=== PATIENT | female | born 1990 | race Caucasian/White ===

== ENCOUNTER 2017-05-12 15:35 | Emergency (ER) | payer MEDICAID ==
[~2017-05-12] VITALS: Ht 160 cm; Wt 50.7 kg
[2017-05-12 16:29] LABS: BLOOD UREA NITROGEN 9 mg/dL (7-18)
[2017-05-12 16:37] LABS: PATH.CAST-FLAG NOT PRESENT; SPERM-FLAG NOT PRESENT; SRC-FLAG NOT PRESENT; XTAL-FLAG NOT PRESENT; YLC-FLAG NOT PRESENT
[2017-05-12] MEDS ORDERED: HYDROcodone/APAP 5/325 TABLET ONE (18:09)
[2017-05-12] MEDS ORDERED: HYDROcodone/APAP 5/325 TABLET PO ONE (18:30)
[2017-05-12 19:16] VITALS: BP 111/76
== END 2017-05-12 19:18 | disposition home or self-care (01) ==
LOC: ED 19:00
DX: N30.90 Cystitis, unspecified without hematuria (principal); N94.6 Dysmenorrhea, unspecified
CPT/HCPCS: 36415; 76830; 80048; 81001; 82040; 84703; 85025; 87086; 99285

== ENCOUNTER 2018-01-23 13:55 | Emergency (ER) | payer MEDICAID ==
[~2018-01-23] VITALS: Ht 160 cm; Wt 52.5 kg
[2018-01-23 13:59] VITALS: BP 124/85
[2018-01-23] MEDS ORDERED: DEXAMETHASONE 4 MG/ML, 1ML PO ONE (14:30)
[2018-01-23] MEDS ORDERED: DEXAMETHASONE 4 MG TABLET ONE (14:42)
[2018-01-23] MEDS ORDERED: ACETAMINOPHEN 500 MG TABLET PO ONE (16:10)
[2018-01-23] MEDS ORDERED: ACETAMINOPHEN 500 MG TABLET ONE (16:11)
== END 2018-01-23 16:25 | disposition home or self-care (01) ==
LOC: ED 16:00
DX: J02.0 Streptococcal pharyngitis (principal)
CPT/HCPCS: 93005; 99283; J1100

== ENCOUNTER 2018-07-19 09:28 | Emergency (ER) | payer MEDICAID ==
[~2018-07-19] VITALS: Ht 160 cm; Wt 52.8 kg
[2018-07-19] MEDS ORDERED: OXYcodone/APAP 10/325MG TABLET PO ONE (11:00)
[2018-07-19] MEDS ORDERED: OXYcodone/APAP 10/325MG TABLET ONE ×2 (11:17→13:28)
[2018-07-19 11:26] LABS: CULTURE INDICATED? NO; MICROSCOPIC NOT IND
[2018-07-19 11:53] LABS: BASOPHILS # (AUTO) 0.03 x10^3/uL (0-0.1); BASOPHILS % (AUTO) 0 % (0-1); EOSINOPHILS # (AUTO) 0.06 x10^3/uL (0-0.4); EOSINOPHILS % (AUTO) 1 % (1-7); LYMPHOCYTES # (AUTO) 1.93 x10^3/uL (1-3.4); LYMPHOCYTES % (AUTO) 26 % (22-44); MD NO; MEAN CORPUSCULAR HEMOGLOBIN 32.1 pg (27.0-34.8); MEAN CORPUSCULAR HGB CONC 34.5 g/dL (32.4-35.8); MEAN PLATELET VOLUME 8.9 fL (7.4-10.4); MONOCYTES # (AUTO) 0.58 x10^3/uL (0.2-0.8); MONOCYTES % (AUTO) 8 % (2-9); NEUTROPHILS # (AUTO) 4.81 x10^3/uL (1.8-6.8); NEUTROPHILS % (AUTO) 65 % (42-75); PLATELET COUNT 326 x10^3/uL (130-400); RED BLOOD COUNT 4.56 x10^6/uL (3.82-5.3); RED CELL DISTRIBUTION WIDTH 13.5 % (9.6-15.2)
[2018-07-19 12:01] LABS: ALBUMIN 4.1 g/dL (3.4-5.0); CHLORIDE 108 mmol/L (98-107)
[2018-07-19 12:04] LABS: ALANINE AMINOTRANSFERASE 19 U/L (12-78); ALKALINE PHOSPHATASE 54 U/L (45-117); ANION GAP 5 mmol/L (5-15); BILIRUBIN,TOTAL 0.5 mg/dL (0.2-1.0); CALCIUM 8.8 mg/dL (8.5-10.1); CREATININE 0.66 mg/dL (0.55-1.02); TOTAL PROTEIN 7.7 g/dL (6.4-8.2)
[2018-07-19 12:28] LABS: CLUE CELLS PRESENT (NONE SEEN); WET PREP WBCS FEW (FEW)
[2018-07-19 12:30] LABS: HCG UR SG 1.025 (1.003-1.030)
[2018-07-19] MEDS ORDERED: OxyconTIN ER 10 MG TAB.ER PO SCH (12:30)
[2018-07-19 14:23] VITALS: BP 101/71
== END 2018-07-19 14:25 | disposition home or self-care (01) ==
LOC: ED 11:14
DX: K08.89 Other specified disorders of teeth and supporting structures (principal); R10.2 Pelvic and perineal pain; N76.0 Acute vaginitis; B96.89 Other specified bacterial agents as the cause of diseases classified elsewhere; Z98.51 Tubal ligation status; F17.210 Nicotine dependence, cigarettes, uncomplicated
CPT/HCPCS: 36415; 76830; 80053; 81003; 81025; 85025; 87210; 87491; 87591; 87808; 99285

== ENCOUNTER 2021-01-28 16:46 | Emergency (ER) | payer MEDICAID ==
[~2021-01-28] VITALS: Ht 157.5 cm; Wt 60.4 kg
--- NOTE | 2021-01-28 17:14 | NUR ---
Pt states cp for about a month now. Last 3 days reports getting worse. States left arm is going numb and is painful. States being fatigued. reports having carpel tunnel. Denies cough, fever, sore throat or hx of heart disease in family. Denies drinking caffeine, painful urination, or GI discomfort.
[2021-01-28] MEDS ORDERED: KETOROLAC 30 MG/1 ML IM ONE (17:30)
[2021-01-28 17:43] LABS: BASOPHILS % (AUTO) 1 % (0-1); EOSINOPHILS % (AUTO) 1 % (1-7); LYMPHOCYTES % (AUTO) 30 % (22-44); MEAN CORPUSCULAR HEMOGLOBIN 31.4 pg (27.0-34.8); MEAN CORPUSCULAR HGB CONC 34.3 g/dL (32.4-35.8); MEAN PLATELET VOLUME 8.7 fL (7.4-10.4); MONOCYTES % (AUTO) 8 % (2-9); NEUTROPHILS % (AUTO) 60 % (42-75); PLATELET COUNT 311 x10^3/uL (130-400); RED BLOOD COUNT 4.41 x10^6/uL (3.82-5.3); RED CELL DISTRIBUTION WIDTH 12.9 % (9.6-15.2)
[2021-01-28 17:44] LABS: MD NO
[2021-01-28 17:54] LABS: ALANINE AMINOTRANSFERASE 20 U/L (12-78); ALBUMIN 3.8 g/dL (3.4-5.0); ANION GAP 5 mmol/L (5-15); CALCIUM 8.9 mg/dL (8.5-10.1); CHLORIDE 106 mmol/L (98-107); CREATININE 0.74 mg/dL (0.55-1.02)
[2021-01-28] MEDS ORDERED: KETOROLAC 30 MG/1 ML ONE (17:57)
[2021-01-28 18:04] LABS: ALKALINE PHOSPHATASE 56 U/L (45-117); BILIRUBIN,TOTAL 0.4 mg/dL (0.2-1.0); T4 (THYROXINE) 9.4 mcg/dL (4.8-13.9); TOTAL PROTEIN 7.4 g/dL (6.4-8.2); TROPONIN I < 0.015 ng/mL (0.000-0.045)
[2021-01-28 18:48] VITALS: BP 98/63
== END 2021-01-28 18:56 | disposition home or self-care (01) ==
LOC: ED 17:47
DX: R00.2 Palpitations (principal); R07.89 Other chest pain
CPT/HCPCS: 36415; 71045; 80053; 83735; 84436; 84443; 84484; 84703; 85025; 93005; 96372; 99285; J1885